=== PATIENT | male | born 1980 | race Caucasian/White ===

== ENCOUNTER 2025-06-17 13:55 | Emergency (ER) | payer OTHER ==
[~2025-06-17] VITALS: Ht 175.3 cm; Wt 116.0 kg
[2025-06-17 14:09] VITALS: O2SAT 97
[2025-06-17] MEDS: KETOROLAC 15MG/ML VIAL IM ONE (15:45)
[2025-06-17] MEDS: LIDOCAINE 5% PATCH TOP SCH (17:21)
[2025-06-17] MEDS: CYCLOBENZAPRINE 10MG TABLET PO ONE (17:21)
[2025-06-17] MEDS ORDERED: CYCL5TAB3 MT (18:21)
[2025-06-17] MEDS ORDERED: ACET-2708 MT (18:21)
[2025-06-17] MEDS ORDERED: LIDO700A30 TP (18:21)
[2025-06-17 19:11] VITALS: BP 134/80; PULSE 85; RESP 15; TEMP 36.6; O2SAT 99
== END 2025-06-17 19:15 | disposition home or self-care (01) ==
LOC: ER 13:55
DX: S39.012A Strain of muscle, fascia and tendon of lower back, initial encounter (principal); I10 Essential (primary) hypertension; Z88.5 Allergy status to narcotic agent; X58.XXXA Exposure to other specified factors, initial encounter; Y93.89 Activity, other specified; Y92.89 Other specified places as the place of occurrence of the external cause; Y99.8 Other external cause status
CPT/HCPCS: 99283; 72100; 96372; J1885; A4606